=== PATIENT | female | born 2000 | race Caucasian/White ===

== ENCOUNTER 2020-03-30 00:45 | Emergency (ER) | payer OTHER, SELFPAY ==
--- OUTSIDE RECORDS SUMMARY | 2020-03-30 00:47 | XMS REPORT | Continuity of Care Document ---
:2000 Author Organization [facility] t Address [address] [place] [address] Care Team Providers Name Role Phone Doctor Unassigned, Name Attending Clinician Unavailable Problems This patient has no known problems. Allergies, Adverse Reactions, Alerts This patient has no known allergies or adverse reactions. Medications This patient has no known medications. Procedures This patient has no known procedures. Encounters Start End Encounter Admission Attending Care Care Encounter Source Date/Time Date/Time Type Type Clinicians Facility Department ID 2019-11-23 2019-11-23 Letter Doctor GUILLERMINA [id number] 22 00:00:00 00:00:00 (Out) MarlinssSUSAN morrison [id number] [facility] [id number] Results This patient has no known results.
[2020-03-30] MEDS ORDERED: HYDROCODONE/APAP 7.5/325 MG TAB ONE (01:11)
[2020-03-30] MEDS ORDERED: IBUPROFEN 200 MG TAB PO ONE (01:11)
[2020-03-30] MEDS ORDERED: IBUPROFEN 400 MG TAB ONE (01:11)
--- NOTE | 2020-03-30 01:37 | ER ---
Nurse's Notes [facility] Name: Miladys Matos Age: 19 yrs Sex: Female : 2000 Arrival Date: 03/30/2020 Time: 00:47 Bed 6 Private MD: Diagnosis: Strain of other specified muscles and tendons at ankle and foot level;Displaced fracture of lateral malleolus of left fibula Presentation: 03/30 01:03 Chief complaint: Patient states: fell from her friends front door step after drinking ll2 alcohol on Saturday and rolled her right ankle. lots of bruising and swelling since and pain if she bares weight on it. Coronavirus screen: Client denies travel out of the [place] in the last 14 days. At this time, the client does not indicate any symptoms associated with coronavirus-19. Ebola Screen: Patient negative for fever greater than or equal to 101.5 degrees Fahrenheit, and additional compatible Ebola Virus Disease symptoms. Initial Sepsis Screen: Does the patient meet any 2 criteria? No. Patient's initial sepsis screen is negative. Does the patient have a suspected source of infection? No. Patient's initial sepsis screen is negative. Risk Assessment: Do you want to hurt yourself or someone else? Patient reports no desire to harm self or others. Onset of symptoms was March 26, 2020. 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 - Family history:: not pertinent. - Social history:: Smoking status: . Screenin:00 Abuse screen: Denies threats or abuse. Nutritional screening: No deficits noted. ll2 Tuberculosis screening: No symptoms or risk factors identified. Fall Risk None identified. Assessment: 00:59 General: Appears in no apparent distress. Behavior is calm, cooperative, appropriate ll2 for age. Pain: Complains of pain in right leg and dorsum of right foot and anterior aspect of right ankle and lateral aspect of right foot and right ankle Pain currently is 4 out of 10 on a pain scale. Neuro: Level of Consciousness is awake, alert, obeys commands, Oriented to person, place, time, situation. Cardiovascular: Capillary refill < 3 seconds Patient's skin is warm and dry. Respiratory: Airway is patent Respiratory effort is even, unlabored, Respiratory pattern is regular, symmetrical. GI: No signs and/or symptoms were reported involving the gastrointestinal system. : No signs and/or symptoms were reported regarding the genitourinary system. EENT: No signs and/or symptoms were reported regarding the EENT system. Derm: Skin is intact, is healthy with good turgor, Skin is dry, Skin is pink, warm \T\ dry. Skin temperature is warm. Musculoskeletal: Circulation, motion, and sensation intact. Range of motion: limited in right leg. Vital Signs: 01:01 BP 145 / 85; Pulse 107; Resp 16; Pulse Ox 99% on R/A; ll2 ED Course: 00:47 Patient arrived in ED. cl3 00:48 Edmond Matos MD is Attending Physician. bessy 00:58 Nazanin Gordon RN is Primary Nurse. ll2 01:06 Triage completed. ll2 01:07 Patient has correct armband on for positive identification. Call light in reach. Side ll2 rails up X 1. Pulse ox on. NIBP on. 01:07 Arm band placed on right wrist. ll2 01:19 Ankle Left 3 View XRAY In Process Unspecified. EDMS 01:35 Kristofer Bolden MD is Referral Physician. bessy 02:08 No provider procedures requiring assistance completed. Patient did not have IV access ll2 during this emergency room visit. Administered Medications: 01:07 CANCELLED (Other Intervention Used): [place] (7.5 mg-325 mg) 2 tabs PO once; RASS on ea ADMIN: Combtv4, Very Agttd3, Agttd2, Rstlss1, AlertClm0, Drwsy-1, Lt Sdtn-2, Mod Sdtn-3, Dp Sdtn-4, UnArsble-5 01:08 Drug: Motrin 600 mg Route: PO; ea 02:04 Follow up: Response: No adverse reaction ll2 01:08 Drug: [place] (7.5 mg-325 mg) 1 tabs Route: PO; ea 02:05 Follow up: Response: No adverse reaction ll2 Outcome: 01:37 Discharge ordered by MD. doherty 02:08 Discharged to home ambulatory. ll2 02:08 Condition: stable 02:08 Discharge instructions given to patient, Instructed on discharge instructions, follow up and referral plans. medication usage. 02:10 Patient left the ED. ll2 Signatures: Dispatcher [employer] EDEdmond Hussein MD MD cha Antunez, Elena, RN RN Zee Bess 3 Nazanin Gordon RN RN ll2
--- NOTE | 2020-03-30 01:37 | EDPHYS ---
Physician Documentation [facility] Name: Miladys Matos Age: 19 yrs Sex: Female : 2000 Arrival Date: 03/30/2020 Time: 00:47 Bed 6 Private MD: Edmond Mayberry HPI: 03/30 00:55 This 19 yrs old Female presents to ER via Unassigned with complaints of Ankle bessy Injury. 00:55 The patient presents with decreased range of motion, pain, that is acute. The bessy complaints affect the right ankle. Onset: The symptoms/episode began/occurred 2 day(s) ago. Context: The problem was sustained outdoors. Associated signs and symptoms: The patient has no apparent associated signs or symptoms. Modifying factors: The symptoms are alleviated by elevation of extremity, the symptoms are aggravated by weight bearing, movement. Severity of symptoms: At their worst the symptoms were mild. The patient has not experienced similar symptoms in the past. 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 - Family history:: not pertinent. - Social history:: Smoking status: . ROS: 00:55 Constitutional: Negative for fever, chills, and weight loss, Eyes: Negative for injury, bessy pain, redness, and discharge, ENT: Negative for injury, pain, and discharge, Neck: Negative for injury, pain, and swelling, Cardiovascular: Negative for chest pain, palpitations, and edema, Respiratory: Negative for shortness of breath, cough, wheezing, and pleuritic chest pain, Abdomen/GI: Negative for abdominal pain, nausea, vomiting, diarrhea, and constipation, Back: Negative for injury and pain, : Negative for injury, bleeding, discharge, and swelling, Skin: Negative for injury, rash, and discoloration, Neuro: Negative for headache, weakness, numbness, tingling, and seizure, Psych: Negative for depression, anxiety, suicide ideation, homicidal ideation, and hallucinations, Allergy/Immunology: Negative for hives, rash, and allergies, Endocrine: Negative for neck swelling, polydipsia, polyuria, polyphagia, and marked weight changes, Hematologic/Lymphatic: Negative for swollen nodes, abnormal bleeding, and unusual bruising. 00:55 MS/extremity: Positive for decreased range of motion, pain, swelling, tenderness, of the right ankle, lateral aspect of right foot, anterior aspect of right ankle and dorsum of right foot. Exam: 00:55 Constitutional: This is a well developed, well nourished patient who is awake, alert, bessy and in no acute distress. Head/Face: Normocephalic, atraumatic. Eyes: Pupils equal round and reactive to light, extra-ocular motions intact. Lids and lashes normal. Conjunctiva and sclera are non-icteric and not injected. Cornea within normal limits. Periorbital areas with no swelling, redness, or edema. ENT: Nares patent. No nasal discharge, no septal abnormalities noted. Tympanic membranes are normal and external auditory canals are clear. Oropharynx with no redness, swelling, or masses, exudates, or evidence of obstruction, uvula midline. Mucous membranes moist. Neck: Trachea midline, no thyromegaly or masses palpated, and no cervical lymphadenopathy. Supple, full range of motion without nuchal rigidity, or vertebral point tenderness. No Meningismus. Chest/axilla: Normal chest wall appearance and motion. Nontender with no deformity. No lesions are appreciated. Cardiovascular: Regular rate and rhythm with a normal S1 and S2. No gallops, murmurs, or rubs. Normal PMI, no JVD. No pulse deficits. Respiratory: Lungs have equal breath sounds bilaterally, clear to auscultation and percussion. No rales, rhonchi or wheezes noted. No increased work of breathing, no retractions or nasal flaring. Abdomen/GI: Soft, non-tender, with normal bowel sounds. No distension or tympany. No guarding or rebound. No evidence of tenderness throughout. Back: No spinal tenderness. No costovertebral tenderness. Full range of motion. Skin: Warm, dry with normal turgor. Normal color with no rashes, no lesions, and no evidence of cellulitis. Neuro: Awake and alert, GCS 15, oriented to person, place, time, and situation. Cranial nerves II-XII grossly intact. Motor strength 5/5 in all extremities. Sensory grossly intact. Cerebellar exam normal. Normal gait. Psych: Awake, alert, with orientation to person, place and time. Behavior, mood, and affect are within normal limits. 00:55 Musculoskeletal/extremity: Extremities: all appear grossly normal, with no appreciated pain with palpation, grossly normal except: decreased ROM, pain, swelling, tenderness, ROM: full active range of motion, full passive range of motion, limited active range of motion due to pain, Circulation is intact in all extremities. Sensation intact. Compartment Syndrome exam of affected extremity: is normal. Joints: All joints are normal except painful range of motion, swelling, tenderness. Vital Signs: 01:01 BP 145 / 85; Pulse 107; Resp 16; Pulse Ox 99% on R/A; ll2 MDM: 00:48 Patient medically screened. [facility] 01:02 Differential diagnosis: fracture, sprain. Data reviewed: vital signs, nurses notes, [facility] radiologic studies, plain films. Data interpreted: ekg monitor tech: not applicable for this patient encounter. rate is 75 beats/min, rhythm is regular, Pulse oximetry: on room air is 96 %. Test interpretation: by ED physician or midlevel provider: plain radiologic studies. Counseling: I had a detailed discussion with the patient and/or guardian regarding: the historical points, exam findings, and any diagnostic results supporting the discharge/admit diagnosis, radiology results, the need for outpatient follow up, for definitive care, a orthopedic surgeon. 03/30 01:07 Order name: Ankle Left 3 View XRAY [facility] 03/30 00:54 Order name: Ice pack; Complete Time: 00:55 [facility] Administered Medications: 01:07 CANCELLED (Other Intervention Used): [place] (7.5 mg-325 mg) 2 tabs PO once; RASS on ea ADMIN: Combtv4, Very Agttd3, Agttd2, Rstlss1, AlertClm0, Drwsy-1, Lt Sdtn-2, Mod Sdtn-3, Dp Sdtn-4, UnArsble-5 01:08 Drug: Motrin 600 mg Route: PO; ea 02:04 Follow up: Response: No adverse reaction ll2 01:08 Drug: [place] (7.5 mg-325 mg) 1 tabs Route: PO; ea 02:05 Follow up: Response: No adverse reaction ll2 Disposition: 03/30/20 01:37 Discharged to Home. Impression: Strain of other specified muscles and tendons at ankle and foot level, Displaced fracture of lateral malleolus of left fibula. - Condition is Stable. - Discharge Instructions: Ankle Sprain, Fibular Ankle Fracture Treated With or Without Immobilization, Adult, Ankle Sprain, [id number]. - Prescriptions for Ibuprofen 600 mg Oral Tablet - take 1 tablet by ORAL route every 8 hours As needed take with food; 21 tablet. Tylenol- Codeine #3 300-30 mg Oral Tablet - take 2 tablets by ORAL route every 6 hours As needed; 20 tablet. - Medication Reconciliation Form, Thank You Letter, Antibiotic Education, Prescription Opioid Use form. - Follow up: Private Physician; When: 2 - 3 days; Reason: Recheck today's complaints, Continuance of care, Re-evaluation by your physician. Follow up: Kristofer Bolden; When: 2 - 3 days; Reason: Recheck today's complaints, Re-evaluation by your physician. - Problem is new. - Symptoms have improved. Signatures: Dispatcher [employer] EDEdmond Hussein MD MD cha Antunez, Elena, RN RN ea [place], Lacie RN RN ll2 Corrections: (The following items were deleted from the chart) 01:07 00:54 [place] (7.5 mg-325 mg) 2 tabs PO once; RASS on ADMIN: Combtv4, Very Agttd3, ea Agttd2, Rstlss1, AlertClm0, Drwsy-1, Lt Sdtn-2, Mod Sdtn-3, Dp Sdtn-4, UnArsble-5 ordered. bessy 01:07 01:07 [place] (7.5 mg-325 mg) 2 tabs PO once; RASS on ADMIN: Combtv4, Very Agttd3, ea Agttd2, Rstlss1, AlertClm0, Drwsy-1, Lt Sdtn-2, Mod Sdtn-3, Dp Sdtn-4, UnArsble-5 ordered. carleen 01:17 00:54 Ankle Right 3 View+RAD.RAD.BRZ ordered. [facility] EDDE 02:10 01:37 03/30/2020 01:37 Discharged to Home. Impression: Strain of other specified ll2 muscles and tendons at ankle and foot level; Displaced fracture of lateral malleolus of left fibula. Condition is Stable. Discharge Instructions: Ankle Sprain, Ankle Sprain, [id number]-[id number]. Prescriptions for Ibuprofen 600 mg Oral Tablet - take 1 tablet by ORAL route every 8 hours As needed take with food; 21 tablet, Tylenol-Codeine #3 300-30 mg Oral Tablet - take 2 tablets by ORAL route every 6 hours As needed; 20 tablet. and Forms are Medication Reconciliation Form, Thank You Letter, Antibiotic Education, Prescription Opioid Use. Follow up: Private Physician; When: 2 - 3 days; Reason: Recheck today's complaints, Continuance of care, Re-evaluation by your physician. Follow up: Kristofer Bolden; When: 2 - 3 days; Reason: Recheck today's complaints, Re-evaluation by your physician. Problem is new. Symptoms have improved. bessy
--- NOTE | 2020-03-30 07:42 | RAD REPORT ---
EXAM DESCRIPTION: RAD - Ankle Left 3 View -03/30/2020 1:19 am CLINICAL HISTORY: Left ankle pain status post injury FINDINGS: A minimally displaced spiral fracture lateral malleolus. Borderline widening medial clear space equivocal for a deltoid injury sprain
[2020-03-30 08:49] VITALS: BP 145/85; O2SAT 99
== END 2020-03-30 02:10 | disposition home or self-care (01) ==
LOC: ER 00:45
DX: S82.62XA Displaced fracture of lateral malleolus of left fibula, initial encounter for closed fracture (principal); S96.812A Strain of other specified muscles and tendons at ankle and foot level, left foot, initial encounter; W19.XXXA Unspecified fall, initial encounter; Y93.89 Activity, other specified; Y92.89 Other specified places as the place of occurrence of the external cause
CPT/HCPCS: 99283